=== PATIENT | male | born 1950 | race Caucasian/White ===

== ENCOUNTER 2016-09-22 09:15 | Day surgery (SDC) | payer OTHER ==
[2016-09-08 16:23] VITALS: BMI 27.0
[~2016-09-22] VITALS: Ht 177.8 cm; Wt 87.3 kg
[~2016-09-22 09:15] MED LIST: ALFU1TAB2 PO; ALLO300T2 PO; AMLO2.5T PO; CHOL1CAP57 PO; CYCL10TA6 PO; DOCU100C31 PO; FENTANYL CITRATE INJ 50 MCG/1 ML 2 ML VIAL ONE; FLEC50TA20 PO; LISI40TA PO; MAGN250T9 PO; METO1TAB70 PO; MIDAZOLAM HCL 1 MG/ML 2ML VIAL ONE; MULT-506 PO; NALO1TAB2 PO; OXYC-57 PO; PSYL0.524 PO; RIVA1TAB4 PO; [UNRECOGNIZED DRUG - OTHER] PO
--- NOTE | 2016-09-22 09:24 | History and Physical ---
History & Physical Date Sep 22, 2016. Chief Complaint R leg pain History of Present Illness The patient is a 66 year old male with complaints of above that started 5 weeks ago. Severe 8/10 despite VIJAY. No weakness. no left leg pain. MRI shows R L4- 5 HNP contactiting axilla of L4 nerve root. cleared by cards to hold xarelto preop Past Medical/Surgical History HTN Afib hi chol sleep apnea gout CAD-minimal by cath 2011 Additional History Hepatic Disease: No Endocrine Disorder: No Kidney Disease: No Hypertension: Yes Heart Disease: Yes Bleeding Tendencies: No Infectious Diseases: No Allergies Coded Allergies: No Known Allergies (Unverified , 09/08/16) Home Medications Scheduled Alfuzosin Hcl (Alfuzosin Hcl Er), 1 TAB PO QPM Allopurinol (Zyloprim), 150 TAB PO Q2D Allopurinol (Zyloprim), 300 MG PO Q2D Amlodipine (Norvasc), 2.5 MG PO QAM Cholecalciferol (Vitamin D3), 1 TAB PO QAM Cyclobenzaprine Hcl (Flexeril), 10 MG PO TID Docusate Sodium (Docusate Sodium), 1 CAP PO BID Flecainide (Tambocor), 50 MG PO BID Lisinopril (Zestril), 40 MG PO QAM Magnesium (Magnesium), 250 MG PO QAM Metoprolol Succinate (Toprol Xl), 200 MG PO QAM Multivitamin (Multivitamin), 1 TAB PO QAM Naloxegol Oxalate (Movantik), 25 MG PO QAM Psyllium (Metamucil), 1 DOSE PO QAM Rivaroxaban (Xarelto), 20 MG PO QPM Sodium Fluoride (Prevident 5000 Plus), 1 DOSE PO QAM Scheduled PRN Oxycodone/Acetaminophen 5MG/325MG (Percocet 5MG/325MG), 1-2 TABLETS PO Q4H PRN for Pain Physical Examination Skin: warm/dry Eyes: normal inspection, EOMI ENT: normal ENT inspection Head: normocephalic, atraumatic Neck: supple, trachea midline Respiratory/Chest: lungs clear, no respiratory distress Cardiovascular: regular rate, rhythm Back: normal inspection Extremities: normal inspection, normal range of motion Neurologic/Psych: no motor/sensory deficits, alert, normal reflexes, oriented x 3 Diagnosis R L4-5 HNP Plan of Treatment R L4-5 microdiscectomy
[2016-09-22] MEDS ORDERED: ATROPINE SULFATE 0.1 MG/ML 5ML SYR IV PRN (09:30)
[2016-09-22] MEDS ORDERED: EpHEDrine SULFATE INJ 50 MG/ML AMP IV PRN (09:30)
[2016-09-22] MEDS ORDERED: ONDANSETRON INJ 2 MG/ML 2 ML VIAL IV PRN ×2 (09:30→10:45)
[2016-09-22 09:33] VITALS: BP 154/94; PULSE 84; TEMP 36.7; O2SAT 99; Ht 177.8 cm; Wt 87.3 kg
[2016-09-22] MEDS ORDERED: CEFAZOLIN IV 2,000 MG/60 ML D5W IV ONE (09:44)
[2016-09-22] MEDS ORDERED: NURSING VERBAL MED ORDER ONE ×2 (09:45→11:45)
[2016-09-22] MEDS ORDERED: GLYCOPYRROLATE INJ 0.2 MG/ML VIAL ONE (10:20)
[2016-09-22] MEDS ORDERED: LIDOCAINE HCL 2% 2 ML VIAL (20MG/ML) ONE (10:20)
[2016-09-22] MEDS ORDERED: PROPOFOL IV EMULSION 10 MG/ML 20 ML VIAL IV ONE (10:20)
[2016-09-22] MEDS ORDERED: NEOSTIGMINE METHYLSULFATE 5 MG/5 ML SYR ONE (10:20)
[2016-09-22] MEDS ORDERED: ONDANSETRON INJ 2 MG/ML 2 ML VIAL ONE (10:20)
[2016-09-22] MEDS ORDERED: ROCURONIUM BROMIDE 10 MG/ML 5 ML VIAL ONE (10:20)
[2016-09-22] MEDS ORDERED: DEXAMETHASONE SOD INJ 4 MG/ML VIAL ONE (10:20)
[2016-09-22] MEDS ORDERED: BACITRACIN 50000 UNIT VIAL IR ONE (10:30)
[2016-09-22] MEDS ORDERED: THROMBIN FOR SOLN 20000 UNIT KIT TOP ONE (10:30)
[2016-09-22] MEDS ORDERED: BUPIVACAINE/EPINEPHRINE 0.5% MPF 1:200,000 30 ML VIAL INJ ONE (10:30)
[2016-09-22] MEDS ORDERED: FLOSEAL HEMOSTATIC MATRIX 5ML TOP ONE (10:39)
[2016-09-22] MEDS ORDERED: SODIUM CHLORIDE 0.9% 1000ML 1,000 ML IV SCH (10:39)
[2016-09-22] MEDS ORDERED: OXYCODONE/ACETAMINOPHEN 5-325 TAB PO PRN ×2 (10:45)
[2016-09-22] MEDS ORDERED: MoRPHine SULFATE 4 MG/ML 1 ML CARP\\VIAL IV PRN (10:45)
--- NOTE | 2016-09-22 10:45 | [facility] Post Operative Brief Note ---
Immediate Operative Summary Operative Date Sep 22, 2016. Pre-Operative Diagnosis Right L4-5 herniated nucleus pulposus Post-Operative Diagnosis Same as pre-operative count Procedure(s) Performed Right L4-L5 Microdiscectomy Surgeon Dr. Leonard Nathan Development Geologist Surgeon(s) Heron Hall PA-C Estimated Blood Loss 25ml Findings dict Specimens None per surgeon
[2016-09-22] MEDS ORDERED: OXYC-57 PO (10:48)
--- NOTE | 2016-09-22 10:49 | Discharge Instructions ---
Discharge Instructions Admission Reason for Admission: Herniated Nucleus Pulposus Discharge Discharge Diagnosis / Problem: Lumbar Disc Herniation Discharge Goals Goal(s): Decrease discomfort, Improve function, Increase independence Activity Recommendations Activity Limitations: as noted below Lifting Limitations: no more than 5 pounds Exercise/Sports Limitations: until after follow-up appointment May Resume Sexual Activity: after follow-up appointment Shower/Bathe: may shower/bathe in 3 days . Current Hospital Diet Patient's current hospital diet: Discharge Diet Recommended Diet: Regular Diet Procedures Procedures Performed: Right L4-L5 Microdiscectomy Pending Studies Studies pending at discharge: no Medical Emergencies . Who to Call and When: Medical Emergencies: If at any time you feel your situation is an emergency, please call 911 immediately. . Non-Emergent Contact Non-Emergency issues call your: Surgeon Call Non-Emergent contact if: temperature is above 101, your pain is not controlled, your pain is worsening, your pain is unusual for you, your pain is concerning you, wound has increased drainage, wound has increased redness, wound has increased pain, you have any medication questions . "Provider Documentation" section prepared by Heron Hall. VTE Core Measure Inpt VTE Proph given/why not?: Gladis Sanchez
--- NOTE | 2016-09-22 10:53 | OPERATIVE REPORT ---
DATE OF OPERATION: 09/22/2016 PREOPERATIVE DIAGNOSES: Right L4-L5 herniated nucleus pulposus. POSTOPERATIVE DIAGNOSIS: Same. PROCEDURES: Right L4-L5 microdiscectomy. SURGEON: Dr. Nathan. VENDETTE: Heron Hall PA-C. Please note he participated in all portions of the procedure and was critical for performance of the procedure and participated in positioning, prepping, draping, retraction and wound closure. ANESTHESIA: General endotracheal anesthesia. COMPLICATIONS: None. ESTIMATED BLOOD LOSS: Minimal. PROCEDURE: After identification of patient and operative level, he was brought to the OR where he underwent induction of general anesthesia. He was then positioned prone on [facility] OR table. All bony prominences were well padded. Care was taken to avoid pressure on the periorbital area. Lumbosacral area was sterilely prepped and draped in usual fashion. Antibiotics were administered. Time-out was performed. Level was confirmed and skin incision was made over the spinous process of L4 and L5 after infiltration with local anesthetic. I exposed the right L4-5 interlaminar window and placed a blacksmith apprentice retractor, confirmed level with fluoroscopy and marked the level. A did a laminotomy under the caudal edge of L4, removed ligamentum flavum, identified the traversing nerve root, protected it and then swept into the axilla of the L4 nerve root with a nerve hook and found multiple extruded disc fragments were contacting the root. I palpated the foramen and made sure no other further fragments were present. Could palpate the medial border of the L4 pedicle and swept proximally and distally, and confirmed all fragments were out. I then irrigated, applied FloSeal for hemostasis and closed in layered fashion. All sponge and needle counts were correct at the end of the case. I attest to the content of the Intraoperative Record and any orders documented therein. Any exceptio ns are noted below.
[2016-09-22] MEDS: FENTANYL CITRATE INJ 50 MCG/1 ML 2 ML VIAL IV PRN ×6 (11:10→11:34)
[2016-09-22 12:02] VITALS: BP 155/90; PULSE 62; TEMP 36.2; O2SAT 99
[2016-09-22 12:35] VITALS: BP 135/80; PULSE 70; TEMP 36.5; O2SAT 97
--- NOTE | 2016-09-22 12:37 | Anesthesiology Progress Note ---
Anesthesia Post Op Note Date & Time Sep 22, 2016 at 12:36 Vital Signs Pain Intensity: 0 Vital Signs Past 12 Hours Date Time Temp Pulse Resp B/P Pulse Ox O2 Delivery O2 Flow Rate FiO2 09/22/16 12:35 36.5 70 16 135/80 97 Room Air 09/22/16 12:02 36.2 62 16 155/90 99 Room Air 09/22/16 11:50 36.2 57 16 138/82 100 Room Air 09/22/16 11:40 57 16 144/89 100 Room Air 09/22/16 11:30 54 16 147/88 100 Room Air 09/22/16 11:20 56 16 138/84 100 Room Air 09/22/16 11:10 58 18 135/88 100 Mask 10 09/22/16 11:00 55 12 142/90 100 Mask 10 09/22/16 10:53 36.2 62 16 164/95 97 Mask 10 09/22/16 09:33 36.7 84 18 154/94 99 Room Air Notes Mental Status: alert / awake / arousable, participated in evaluation Pt Amnestic to Procedure: Yes Nausea / Vomiting: adequately controlled Pain: adequately controlled Airway Patency, RR, SpO2: stable & adequate BP & HR: stable & adequate Hydration State: stable & adequate Anesthetic Complications: no major complications apparent
[2016-09-22 13:05] VITALS: BP 155/99; PULSE 65; TEMP 36.3; O2SAT 99
--- NOTE | 2016-09-22 14:00 | DIAGNOSTIC IMAGING REPORT ---
LUMBAR SPINE, INTRAOPERATIVE FLUOROSCOPY HISTORY: L4-5 microdiscectomy. FLUOROSCOPY TIME: 2 seconds. FINDINGS: Intraoperative fluoroscopy was provided for the lumbar spine. A single fluoroscopic spot image was submitted. There is a surgical instrument posterior to the L4-5 disc space level. IMPRESSION: Fluoroscopy provided for a L4-L5 microdiscectomy. Electronically signed by: Dionte Hoyt M.D. 09/22/2016 1:59 PM Dictated Date/Time: 09/22/2016 1:58 PM
[2016-09-23] MEDS ORDERED: LACTATED RINGER'S 1000ML 1,000 ML IV SCH (06:00)
== END 2016-09-22 13:16 | disposition home or self-care (01) ==
LOC: C.ACU 09:15
PROVIDERS: ATTEND Orthopaedic Surgery Orthopaedic Surgery of the Spine
DX: M51.16 Intervertebral disc disorders with radiculopathy, lumbar region (principal); I10 Essential (primary) hypertension; I25.10 Atherosclerotic heart disease of native coronary artery without angina pectoris; G47.30 Sleep apnea, unspecified; Z79.899 Other long term (current) drug therapy